=== PATIENT | female | born 1985 | race African-American/Black ===

== ENCOUNTER 2017-06-17 19:43 | Emergency (ER) | payer MEDICAID ==
--- NOTE | 2017-06-17 20:22 | ER Document Report ---
ED Medical Screen (RME) - General Chief Complaint: Vag Bleeding, +preg <12wks Stated Complaint: ABDOMINAL PAIN,VAGINAL BLEEDING Time Seen by Provider: 06/17/17 20:17 Mode of Arrival: Ambulatory Information source: Patient TRAVEL OUTSIDE OF THE [place] IN LAST 30 DAYS: No - HPI Patient complains to provider of: , bleeding Onset: Just prior to arrival - pt states she is , approx 6 weeks along who had a episode of abdominal cramping and vaginal bleeding ealrier today. - Related Data Allergies/Adverse Reactions: No Known Allergies Allergy (Verified 08/19/16 02:11) Past Medical History - Social History Chew tobacco use (# tins/day): No Frequency of alcohol use: None Drug Abuse: None Renal/ Medical History: Denies: Hx Peritoneal Dialysis Infectious Medical History: Denies: Hx HIV Past Surgical History: Reports: Hx Section - Immunizations Immunizations up to date: Yes Hx Diphtheria, Pertussis, Tetanus Vaccination: Yes Physical Exam - Vital signs Vitals: Temp Pulse Resp BP Pulse Ox 98.6 F 81 20 128/71 H 100 06/17/17 20:01 06/17/17 20:01 06/17/17 20:01 06/17/17 20:01 06/17/17 20:01 Course - Vital Signs Vital signs: Temp Pulse Resp BP Pulse Ox 98.6 F 81 20 128/71 H 100 06/17/17 20:01 06/17/17 20:01 06/17/17 20:01 06/17/17 20:01 06/17/17 20:01
--- NOTE | 2017-06-17 20:31 | ER Document Report ---
ED GI/ - General Chief Complaint: Vag Bleeding, +preg <12wks Stated Complaint: ABDOMINAL PAIN,VAGINAL BLEEDING Time Seen by Provider: 06/17/17 20:17 Mode of Arrival: Ambulatory Notes: Patient is a 31-year-old female, at 8 weeks gestation by last menstrual period, that comes emergency department for chief complaint of lower abdominal cramping and vaginal spotting that started this afternoon. She denies vomiting , fever, she denies current pain. She is on vitamins, denies any other medications, has had 2 C-sections, denies any other medical history other than first trimester miscarriages. TRAVEL OUTSIDE OF THE [place] IN LAST 30 DAYS: No - Related Data Allergies/Adverse Reactions: No Known Allergies Allergy (Verified 08/19/16 02:11) Past Medical History - General Information source: Patient - Social History Smoking Status: Never Smoker Chew tobacco use (# tins/day): No Frequency of alcohol use: None Drug Abuse: None Lives with: Family Family History: Reviewed & Not Pertinent Renal/ Medical History: Denies: Hx Peritoneal Dialysis Infectious Medical History: Denies: Hx HIV Past Surgical History: Reports: Hx Section - Immunizations Immunizations up to date: Yes Hx Diphtheria, Pertussis, Tetanus Vaccination: Yes Physical Exam - Vital signs Vitals: Temp Pulse Resp BP Pulse Ox 98.6 F 81 20 128/71 H 100 06/17/17 20:01 06/17/17 20:01 06/17/17 20:01 06/17/17 20:01 06/17/17 20:01 Interpretation: Normal - General General appearance: Appears well, Alert In distress: None - Patient alert, well-appearing, no signs of distress - HEENT Head: Normocephalic, Atraumatic Eyes: Normal Pupils: PERRL - Respiratory Respiratory status: No respiratory distress Chest status: Nontender Breath sounds: Normal Chest palpation: Normal - Cardiovascular Rhythm: Regular Heart sounds: Normal auscultation Murmur: No - Abdominal Inspection: Normal Distension: No distension Bowel sounds: Normal Tenderness: Nontender - Completely nontender abdomen. No: Tender, Guarding Organomegaly: No organomegaly - Back Back: Normal, Nontender - Extremities General upper extremity: Normal inspection, Nontender, Normal color, Normal ROM , Normal temperature General lower extremity: Normal inspection, Nontender, Normal color, Normal ROM , Normal temperature, Normal weight bearing. No: Lakeisha's sign - Neurological Neuro grossly intact: Yes Cognition: Normal Orientation: AAOx4 [place] Coma Scale Eye Opening: Spontaneous [place] Coma Scale Verbal: Oriented Grey Coma Scale Motor: Obeys Commands [place] Coma Scale Total: 15 Speech: Normal Motor strength normal: LUE, RUE, LLE, RLE Sensory: Normal - Psychological Associated symptoms: Normal affect, Normal mood - Skin Skin Temperature: Warm Skin Moisture: Dry Skin Color: Normal Course - Re-evaluation Re-evalutation: P, chemistry, urinalysis unremarkable. RhoGam is not indicated. Patient has soft abdomen, well-appearing, unremarkable vital signs. HCG is greater than 10,000. Ultrasound shows IUP, however even though it is measuring 6+ weeks there is no heartbeat. Concerning for possible miscarriage impending. Discussed with patient that this still could be an early versus miscarriage. Patient states that she Kev is established with an OB/ CONSERVATION EDUCATOR and she plans to see them within the next couple of days, she states she will go to them for an hCG repeat, she was provided with her data from today. I also discussed return precautions in detail. Patient is asymptomatic at time of discharge. - Vital Signs Vital signs: Temp Pulse Resp BP Pulse Ox 98.5 F 66 16 123/71 100 06/17/17 23:01 06/17/17 23:01 06/17/17 23:01 06/17/17 23:01 06/17/17 23:01 - Laboratory Result Diagrams: 06/17/17 21:05 06/17/17 21:05 Laboratory results interpreted by me: 06/17/17 06/17/17 06/17/17 21:05 21:05 21:05 Hgb 11.9 L RDW 16.2 H Beta HCG, Quant 13718.00 H Urine Blood LARGE H Urine Ascorbic Acid 40 H Discharge - Discharge Clinical Impression: Vaginal bleeding in patient at less than 20 weeks gestation Condition: Stable Disposition: HOME, SELF-CARE Additional Instructions: A gestational sac is seen in the uterus, however no heartbeat is identified, unclear if this is an early or an impending miscarriage. Recommend a hCG repeat in 48-72 hours to further assess this. Return to emergency department for any concerning or worsening symptoms including severe pain, heavy bleeding with dizziness, or any other concerning symptoms. Referrals: SANDRA CHANG MD [Primary Care Provider] - Follow up tomorrow
[2017-06-17 21:18] LABS: ABSOLUTE LYMPHOCYTES (AUTO) 1.7 10^3/uL (0.5-4.7); ABSOLUTE MONOCYTES (AUTO) 0.4 10^3/uL (0.1-1.4); ABSOLUTE NEUT (AUTO) 3.3 10^3/uL (1.7-8.2); BASOPHILS % (AUTO) 0.4 % (0-2); EOSINOPHILS % (AUTO) 0.4 % (0-6); HEMATOCRIT 36.5 % (36.0-47.0); HEMOGLOBIN 11.9 g/dL (12.0-15.5); HGB HCT DIFFERENCE -0.8; LYMPHOCYTES % (AUTO) 30.5 % (13-45); MEAN CORPUSCULAR HEMOGLOBIN 27.1 pg (27.0-33.4); MEAN CORPUSCULAR HGB CONC 32.7 g/dL (32.0-36.0); MEAN CORPUSCULAR VOLUME 83 fl (80-97); MONOCYTES % (AUTO) 6.7 % (3-13); RED CELL DISTRIBUTION WIDTH 16.2 % (11.5-14.0); WHITE BLOOD COUNT 5.4 10^3/uL (4.0-10.5)
[2017-06-17 21:22] LABS: APPEARANCE,URINE SLIGHTLY-CLOUDY; BILIRUBIN,URINE NEGATIVE (NEGATIVE); GLUCOSE, URINE NEGATIVE (NEGATIVE); KETONES,URINE NEGATIVE (NEGATIVE); LEUKOCYTE ESTERASE,URINE NEGATIVE (NEGATIVE); NITRITE,URINE NEGATIVE (NEGATIVE); PROTEIN,URINE NEGATIVE (NEGATIVE); URINE SPECIFIC GRAVITY 1.025; UROBILINOGEN,URINE NEGATIVE mg/dL (<2.0)
[2017-06-17 21:36] LABS: ALANINE AMINOTRANSFERASE 29 U/L (9-52); ALBUMIN 3.9 g/dL (3.5-5.0); ALKALINE PHOSPHATASE 58 U/L (38-126); ANION GAP 9 (5-19); ASPARTATE AMINO TRANSFERASE 14 U/L (14-36); BILIRUBIN,DIRECT 0.3 mg/dL (0.0-0.4); BILIRUBIN,TOTAL 0.4 mg/dL (0.2-1.3); BLOOD UREA NITROGEN 9 mg/dL (7-20); CALCIUM 9.1 mg/dL (8.4-10.2); CARBON DIOXIDE 25 mmol/L (22-30); CHLORIDE 105 mmol/L (98-107); CREATININE RESULT 0.55 mg/dL (0.52-1.25); GLUCOSE 104 mg/dL (75-110); POTASSIUM 4.1 mmol/L (3.6-5.0); SODIUM 139.4 mmol/L (137-145); TOTAL PROTEIN 7.6 g/dL (6.3-8.2)
--- NOTE | 2017-06-17 22:18 | RADIOLOGY REPORT (SQ) ---
EXAM DESCRIPTION: U/S OB TRANSVAG W/DOPPLER COMPLETED DATE/TIME: 06/17/2017 10:03 pm REASON FOR STUDY: vag bleeding, pain, 1st trimester COMPARISON: None. TECHNIQUE: Transvaginal static and realtime grayscale images acquired of the pelvis. Additional raghu cted spectral and color Doppler images recorded. All images stored on PACs. bHC,145 LIMITATIONS: Body habitus FINDINGS: UTERUS: No masses. No anomalies. GESTATIONAL SAC: Yes YOLK SAC: Possible POLE: Yes 6 weeks 4 days. No cardiac activity identified. RIGHT ADNEXA: Ovary not identified. No adnexal free fluid. No adnexal masses. LEFT ADNEXA: Ovary not identified. No adnexal free fluid. No adnexal masses. FREE FLUID: None. OTHER: No other significant finding. IMPRESSION: POSSIBLE EARLY INTRAUTERINE . pole. No heartbeat. BHCG LEVEL APPROPRIATE FOR ENDOMETRIAL FINDINGS. CONSIDER F/U BHCG AND/OR ULTRASOUND FOR VERIFICATION AND TO EXCLUDE ECTOPIC . Trimester of : First - 0 to 13 weeks. COMMENT: HCG levels in early chart *3 weeks: 5-50 mIU/ml *4 weeks: 5-426 mIU/ml *5 weeks: 18-7,340 mIU/ml *6 weeks: 1,080-56,500 mIU/ml *7-8 weeks: 7,560-229,000 mIU/ml *9-12 weeks: 25,700- 288,000 mIU/ml *13-16 weeks: 13,300-254,000 mIU/ml *17-24 weeks: 4,060-165,400 mIU/ml *25-40 weeks: 3,640-117,000 mIU/ml TECHNICAL DOCUMENTATION: JOB ID: [id number]- All Rights Reserved
[2017-06-17 23:57] VITALS: BP 123/71
== END 2017-06-17 23:06 | disposition home or self-care (01) ==
LOC: ER 19:43
DX: O20.9 Hemorrhage in early pregnancy, unspecified (principal)
CPT/HCPCS: 36415; 76817; 80053; 81001; 84702; 85025; 86900; 86901; 93976; 99284

== ENCOUNTER 2017-06-18 17:28 | Emergency (ER) | payer MEDICAID ==
[2017-06-18 17:45] VITALS: BP 126/83
--- NOTE | 2017-06-18 17:57 | ER Document Report ---
ED General - General Chief Complaint: Vag Bleeding, +preg <12wks Stated Complaint: VAGINAL BLEEDING Time Seen by Provider: 06/18/17 17:45 Mode of Arrival: Ambulatory Information source: Patient Notes: Patient was seen here yesterday for some vaginal spotting. At that time she was diagnosed with a . On ultrasound a pole was seen but no heart rate. It was determined that patient may be having a miscarriage. She states she returns today because the bleeding and cramping increased and the discharge instructions said to return for this. The cramping is bilateral lower quadrant. It is intermittent. It does radiate to the low back. Nothing makes it better or worse. She has had some clots. She has not been lightheaded or dizzy. TRAVEL OUTSIDE OF THE [place] IN LAST 30 DAYS: No - Related Data Allergies/Adverse Reactions: No Known Allergies Allergy (Verified 06/18/17 17:42) Past Medical History - General Information source: Patient Last Menstrual Period: april 2017 - Social History Smoking Status: Never Smoker Drug Abuse: None Family History: Reviewed & Not Pertinent Patient has suicidal ideation: No Patient has homicidal ideation: No Renal/ Medical History: Denies: Hx Peritoneal Dialysis Infectious Medical History: Denies: Hx HIV Past Surgical History: Reports: Hx Section - Immunizations Immunizations up to date: Yes Hx Diphtheria, Pertussis, Tetanus Vaccination: Yes Review of Systems - Review of Systems Constitutional: denies: Chills, Fever Cardiovascular: denies: Chest pain, Palpitations Respiratory: denies: Cough, Short of breath Gastrointestinal: denies: Diarrhea, Vomiting Physical Exam - Vital signs Vitals: Temp Pulse Resp BP Pulse Ox 99.2 F 86 16 126/83 H 99 06/18/17 17:44 06/18/17 17:44 06/18/17 17:44 06/18/17 17:44 06/18/17 17:44 - General General appearance: Appears well, Alert - Respiratory Respiratory status: No respiratory distress Chest status: Nontender Breath sounds: Normal Chest palpation: Normal - Cardiovascular Rhythm: Regular Heart sounds: Normal auscultation Murmur: No - Abdominal Inspection: Normal Distension: No distension Bowel sounds: Normal Tenderness: Tender - bilat lq pain to palpation, no rebound or guarding. - Back Back: Normal, Nontender - Extremities General upper extremity: Normal inspection, Nontender, Normal color, Normal ROM , Normal temperature General lower extremity: Normal inspection, Nontender, Normal color, Normal ROM , Normal temperature, Normal weight bearing. No: Lakeisha's sign - Neurological Neuro grossly intact: Yes Cognition: Normal Orientation: AAOx4 [place] Coma Scale Eye Opening: Spontaneous [place] Coma Scale Verbal: Oriented [place] Coma Scale Motor: Obeys Commands [place] Coma Scale Total: 15 Speech: Normal Motor strength normal: LUE, RUE, LLE, RLE Sensory: Normal - Psychological Associated symptoms: Normal affect, Normal mood - Skin Skin Temperature: Warm Skin Moisture: Dry Skin Color: Normal Course - Re-evaluation Re-evalutation: 06/18/17 17:55 Patient has a scheduled appointment with her SUPPLY PERSON in 2 days. Patient was comfortable being discharged home today. A repeat beta hCG level will be drawn and she will be given a copy of the ultrasound from yesterday. No further emergency department workup seems necessary at this time. - Vital Signs Vital signs: Temp Pulse Resp BP Pulse Ox 99.2 F 86 16 126/83 H 99 06/18/17 17:44 06/18/17 17:44 06/18/17 17:44 06/18/17 17:44 06/18/17 17:44 Discharge - Discharge Clinical Impression: Incomplete Condition: Stable Disposition: HOME, SELF-CARE Instructions: Miscarriage ([facility]) Additional Instructions: Please follow-up as scheduled with your SUPPLY PERSON Forms: Elevated Blood Pressure Referrals: SANDRA CHANG MD [ACTIVE STAFF] - Follow up as needed
== END 2017-06-18 18:14 | disposition home or self-care (01) ==
LOC: ER 17:28
DX: O03.4 Incomplete spontaneous abortion without complication (principal); R10.31 Right lower quadrant pain; R10.32 Left lower quadrant pain; M54.5 Low back pain; R42 Dizziness and giddiness
CPT/HCPCS: 36415; 84702; 99283